=== PATIENT | male | born 1980 | race Caucasian/White ===

== ENCOUNTER 2019-01-11 16:31 | Observation (INO) | payer BC ==
[2019-01-11] MEDS ORDERED: SODIUM CHLORIDE 0.9% 1,000 ML IV STA ×2 (17:22)
[2019-01-11] MEDS ORDERED: ASPIRIN 81 MG PO STA (17:22)
[2019-01-11 17:30] LABS: Basophils # (A) 0.1 k/uL (0-0.2); Basophils % (A) 1 %; Eosinophils # (A) 0.3 k/uL (0-0.7); Eosinophils % (A) 3 %; HCT 49.4 % (39.0-53.0); Lymphocytes # (A) 2.9 k/uL (1.0-4.8); Lymphocytes % (A) 26 %; MCH 30.5 pg (25.0-35.0); MCHC 34.5 g/dL (31.0-37.0); MCV 88.5 fL (80.0-100.0); Mean Platelet Volume 7.3; Monocytes # (A) 0.5 k/uL (0-1.0); Monocytes % (A) 4 %; Neutrophils # (A) 7.4 k/uL (1.3-7.7); Neutrophils % (A) 66 %; Platelet Count 190 k/uL (150-450); RBC 5.58 m/uL (4.30-5.90); RDW 13.6 % (11.5-15.5); WBC 11.3 k/uL (3.8-10.6)
[2019-01-11 17:38] LABS: INR 0.9 (<1.2); Partial Thromboplastin Time 22.8 sec (22.0-30.0)
[2019-01-11 17:41] LABS: Albumin 4.9 g/dL (3.5-5.0); Calcium 9.6 mg/dL (8.4-10.2); Magnesium 1.8 mg/dL (1.6-2.3); Potassium 4.3 mmol/L (3.5-5.1); Total Bilirubin 0.6 mg/dL (0.2-1.3)
[2019-01-11 17:45] LABS: Creatine Kinase 88 U/L (55-170)
[2019-01-11 17:58] LABS: Creatine Kinase MB 0.4 ng/mL (0.0-2.4); Troponin I <0.012 ng/mL (0.000-0.034)
[2019-01-11] MEDS ORDERED: LORazepam 2 MG/ML INJ IV STA (18:12)
--- NOTE | 2019-01-11 18:17 | XR ---
EXAMINATION TYPE: XR chest 2V DATE OF EXAM: 01/11/2019 COMPARISON: NONE HISTORY: Hypertension TECHNIQUE: Frontal and lateral views of the chest are obtained. FINDINGS: Heart and mediastinum are normal. Lungs are clear. Diaphragm is normal. Bony thorax appear s normal. There are chest leads. IMPRESSION: Normal chest
--- NOTE | 2019-01-11 18:33 | ED ---
Chest Pain HPI - General Chief Complaint: Chest Pain Stated Complaint: high blood pressure Time Seen by Provider: 01/11/19 17:08 Source: patient, RN notes reviewed, old records reviewed Mode of arrival: ambulatory Limitations: no limitations - History of Present Illness Initial Comments: Patient is a 38-year-old male presents emergency room today with complaints of intermittent chest pain. He reports that he's had chest pain intermittently for the past 2 months. Patient states that he was having a today and felt very anxious. He went to his nurse while at school. She took his blood pressure was elevated 150/100. Patient is a school counselor. Patient states that he has a significant family history of heart disease and then dying from. He just 51 years old from heart attack. Patient states that he is a nonsmoker. He is noticed no history of hypertension. He is not diabetic. Patient states that he has a 1 out of 10 left-sided dull chest pain. - Related Data Home Medications Medication Instructions Recorded Confirmed Allopurinol [Zyloprim] 300 mg PO W/SUPPER 01/11/19 01/11/19 Mirtazapine [Remeron] 15 mg PO HS 01/11/19 01/11/19 Zolpidem Tartrate [Ambien] 10 mg PO HS 01/11/19 01/11/19 Allergies Allergy/AdvReac Type Severity Reaction Status Date / Time Penicillins Allergy Diarrhea Verified 01/11/19 18:43 Review of Systems ROS Statement: Those systems with pertinent positive or pertinent negative responses have been documented in the HPI. ROS Other: All systems not noted in ROS Statement are negative. EKG Findings - EKG Comments: EKG Findings:: EKG performed at 1705 shows sinus rhythm with inferior infarct age undetermined. Abnormal EKG noted. Patient has ventricular rate 95 bpm. Intervals 132 ms. QRS duration is 92 ms. QT QTc is 356/457 ms. Evidence of some T-wave inversions in lead 2, 3 and aVF Past Medical History Additional Past Medical History / Comment(s): gout History of Any Multi-Drug Resistant Organisms: None Reported Past Surgical History: Orthopedic Surgery Additional Past Surgical History / Comment(s): L knee Past Psychological History: Depression Smoking Status: Never smoker Past Alcohol Use History: Occasional Past Drug Use History: None Reported General Exam - General Exam Comments Initial Comments: Is an 38-year-old male. Alert and oriented 3. No significant distress. General: Well appearing, well nourished, in no distress. Oriented x 3, normal mood and affect . Ambulating without difficulty. Skin: Good turgor, no rash, unusual bruising or prominent lesions Hair: Normal texture and distribution. HEENT: Head: Normocephalic, atraumatic, no visible or palpable masses, depressions, or scaring. Eyes: Visual acuity intact, conjunctiva clear, sclera non-icteric, EOM intact, PERRL. Ears: EACs clear, TMs translucent & cone of light visualized. hearing intact. Nose: No external lesions, mucosa non-inflamed, septum and turbinates normal Mouth: Mucous membranes moist, no mucosal lesions. Teeth/Gums: No obvious caries or periodontal disease. No gingival inflammation or significant resorption. Pharynx: Mucosa non-inflamed, no tonsillar hypertrophy or exudate Neck: Supple, without lesions, bruits, or adenopathy, thyroid non-enlarged and non-tender Heart: No cardiomegaly or thrills; regular rate and rhythm, no murmur or gallop Lungs: Clear to auscultation and percussion Extremities: No amputations or deformities, cyanosis, edema or varicosities, peripheral pulses intact Musculoskeletal: Normal gait and station. No misalignment, asymmetry, crepitation, defects, tenderness, masses, effusions, decreased range of motion, instability, atrophy or abnormal strength or tone in the head, neck, spine, ribs , pelvis or extremities. Neurologic: CN 2-12 normal. Sensation to pain, touch, and proprioception normal. DTRs normal in upper and lower extremities. No pathologic reflexes. Psychiatric: Oriented X3, intact recent and remote memory, judgment and insight , normal mood and affect. Limitations: no limitations Course Vital Signs 01/11/19 01/11/19 16:34 17:11 Temperature 97.7 F Pulse Rate 99 84 Respiratory 18 18 Rate Blood Pressure 159/107 166/104 O2 Sat by Pulse 97 98 Oximetry [facility] Patient is a 38-year-old male with presents emergency department today and she went high blood pressure and chest pain. Patient ports is intermittent chest pain for the past few months. Patient today has some slight EKG changes T wave changes over lead to 3 aVF. He has a significant family history of early from cardiac disease. Patient also appears somewhat anxious. He was given IV fluids and lab work obtained. Troponin is negative chest x-ray is normal. Blood pressure came down 120/77. I discussed with family history and continued complaints of chest pain and EKG changes like to admit the Patient for further evaluation and cardiology consult. Patient agrees to treatment plan will comply. Disposition Clinical Impression: Chest pain Disposition: ADMITTED IP TO THIS [facility] Condition: Good Instructions (If sedation given, give patient instructions): Chest Pain (ED) Is patient prescribed a controlled substance at d/c from ED?: No Referrals: David Francis III, MD [Primary Care Provider] - 1-2 days Time of Disposition: 19:40
[2019-01-11] MEDS ORDERED: ACETAMINOPHEN TAB 325 MG TAB PO PRN (19:41)
[2019-01-11] MEDS ORDERED: IBUPROFEN 400 MG TAB PO PRN (19:41)
[2019-01-11] MEDS ORDERED: KETOROLAC 30 MG/ML 1 ML VIAL IVP PRN (19:41)
[2019-01-11] MEDS ORDERED: MORPHINE SULFATE 4 MG/ML SYRINGE IV PRN (19:41)
[2019-01-11] MEDS ORDERED: ONDANSETRON 4 MG/2 ML VIAL IVP PRN (19:41)
[2019-01-11] MEDS ORDERED: NALOXONE 0.4 MG/ML 1 ML VIAL IV PRN (19:41)
[2019-01-11] MEDS ORDERED: SODIUM CHLORIDE 0.9% 1,000 ML IV SCH (19:45)
[2019-01-11] MEDS ORDERED: ZOLPIDEM 10 MG TAB PO SCH (21:00)
[2019-01-11] MEDS ORDERED: MIRTAZAPINE 15 MG TAB PO SCH (21:00)
[2019-01-11] MEDS ORDERED: ALPRAZolam 0.25 MG TAB PO PRN (22:28)
[2019-01-11] MEDS ORDERED: HYDROcodone/APAP 5-325MG 1 EACH TAB PO PRN (22:28)
[2019-01-11] MEDS ORDERED: cloNIDine HCL 0.1 MG TAB PO PRN (22:28)
[2019-01-11] MEDS ORDERED: TEMAZEPAM 15 MG CAP PO PRN (22:28)
[2019-01-11] MEDS ORDERED: cloNIDine HCL 0.1 MG TAB PO SCH (22:30)
[2019-01-12 06:08] LABS: Basophils # (A) 0.1 k/uL (0-0.2); Basophils % (A) 1 %; Eosinophils # (A) 0.3 k/uL (0-0.7); Eosinophils % (A) 4 %; HCT 46.2 % (39.0-53.0); HGB 15.2 gm/dL (13.0-17.5); Lymphocytes # (A) 2.2 k/uL (1.0-4.8); Lymphocytes % (A) 26 %; MCH 29.7 pg (25.0-35.0); MCHC 32.9 g/dL (31.0-37.0); MCV 90.3 fL (80.0-100.0); Mean Platelet Volume 7.4; Monocytes # (A) 0.4 k/uL (0-1.0); Monocytes % (A) 5 %; Neutrophils # (A) 5.3 k/uL (1.3-7.7); Neutrophils % (A) 63 %; Platelet Count 149 k/uL (150-450); RBC 5.11 m/uL (4.30-5.90); RDW 13.5 % (11.5-15.5); WBC 8.4 k/uL (3.8-10.6)
[2019-01-12 06:19] LABS: Anion Gap 6 mmol/L; Blood Urea Nitrogen 12 mg/dL (9-20); Calcium 8.9 mg/dL (8.4-10.2); Carbon Dioxide 25 mmol/L (22-30); Chloride 111 mmol/L (98-107); Glucose 101 mg/dL (74-99); Potassium 4.4 mmol/L (3.5-5.1); Sodium 142 mmol/L (137-145)
--- NOTE | 2019-01-12 07:27 | HP ---
HISTORY AND PHYSICAL DATE OF SERVICE: 01/11/2019 CHIEF COMPLAINTS: Chest pain and hypertension. HISTORY OF PRESENT ILLNESS: This 38-year-old gentleman with a past medical history of multiple medical problems including history of gout, insomnia, history of kidney insufficiency in the past , history depression being followed by Dr. Francis in the outpatient setting was complaining of chest pain intermittently on the left side. The pain was actually present for 2 months which is aggravating today. The patient became very anxious. Blood pressure elevated at and the patient was admitted for further evaluation and treatment. Initial EKG did not show any acute changes. The pain was reported as rather sharp in character. There is no history of any fever, rigors. No history of headache, loss of consciousness, or seizures. PAST MEDICAL HISTORY: History of gout, insomnia, kidney failure, history of depression. MEDICATIONS: Medications prior to admission include home medications are: 1. Ambien 10 mg q.h.s. 2. Remeron 15 mg q.h.s. 3. Zyloprim 300 mg at supper. ALLERGIES: PENICILLIN. FAMILY HISTORY: History of myocardial infarction. Multiple members of family at early age , father at 54 and grandparents in 50s probably. SOCIAL HISTORY: No history of smoking. History of alcohol twice a week up to 5-6 drinks per sitting according to him. REVIEW OF SYSTEMS: ENT: No diminished hearing or diminished vision. CARDIOVASCULAR SYSTEM: As mentioned earlier. RESPIRATORY SYSTEM: As mentioned earlier. GI: No nausea. : No dysuria. NERVOUS SYSTEM: No numbness or weakness. ALLERGY/IMMUNOLOGY: No history of asthma. MUSCULOSKELETAL: As mentioned earlier. HEMATOLOGY/ONCOLOGY: No history of anemia. ENDOCRINE: No history of diabetes or hypothyroidism. CONSTITUTIONAL: As mentioned earlier. DERMATOLOGY: Negative. RHEUMATOLOGY: Negative. PSYCHIATRY: As mentioned earlier. PHYSICAL EXAMINATION: The patient is alert and oriented x3. Pulse is 90, blood pressure 173/93, respirations 16, temperature 98.2, pulse ox 97% on room air. HEENT: Conjunctivae normal. NECK: No jugular venous distention. CARDIOVASCULAR: S1, S2 muffled. RESPIRATORY: Breath sounds diminished at the bases. No rhonchi, no crackles. ABDOMEN: Soft, nontender. No mass palpable. LEGS: No edema. No swelling. NERVOUS SYSTEM: Higher function as mentioned. Moves all 4 limbs. No focal deficits. LYMPHATICS: No lymphadenopathy of the neck, axillae or groin. SKIN: No ulcer, rash or bleeding. JOINTS: No active deforming arthropathy. LABS: WBC 11.3, hemoglobin 17. Otherwise, creatinine is 1.3. ASSESSMENT: 1. Chest pain possible unstable angina possibly musculoskeletal. 2. Increased creatinine with possible chronic kidney disease stage 2. 3. Increased WBC. 4. History of gout. 5. History of insomnia. 6. History of degenerative joint disease. 7. History of depression. RECOMMENDATIONS AND DISCUSSION: In this 38-year-old gentleman who presented with multiple medical issues, at this time will monitor the patient closely. Continue the current medications, continue symptomatic treatment. Rule out myocardial infarction. Cardiology consultation , possible stress test. I would also recommend blood pressure evaluation treatment. Also, clonidine will be initiated. Other than that, I would also recommend repeat labs. Guarded prognosis because of multiple complex medical issues. Further recommendations to follow. A copy of dictation forwarded to Dr. Francis who is the primary physician. PEDRO LUIS / JAISONN: [id number] / MAXINE
--- NOTE | 2019-01-12 08:44 | P.CRDCN ---
History of Present Illness History of present illness: This is a pleasant 38-year-old male past medical history significant for gout, insomnia and depression. He denies history of hypertension, dyslipidemia, coronary artery disease or diabetes mellitus. He states his father suffered a massive myocardial infarction at the age of 54 causing his . We have been asked to see him in consultation for symptoms of chest discomfort and elevated blood pressure. He states all day yesterday he was feeling jittery and anxious. 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 It was elevated at 150/100. He has never been diagnosed with hypertension in the past. He also describes an achy sensation in the left precordial region intermittently. There is no radiation to the arm, back, neck or jaw. He also denies any shortness of breath, dizziness, palpitations, nausea, vomiting or diaphoresis. His symptoms have subsided since arriving at the hospital. He was given a dose of Ativan last evening. He is seen and examined resting comfortably lying flat in bed in no acute distress. EKG reveals sinus mechanism with inferior Q waves and T-wave inversions are noted in the inferior leads. No old for comparison. Chest x-ray is negative for an acute cardiopulmonary process. Laboratory data reviewed, cardiac enzymes negative 3. At the time of my exam: CONSTITUTIONAL: Denies fever. Denies chills. EYES: Denies blurred vision. Denies vision changes. Denies eye pain. EARS, NOSE, MOUTH & THROAT: Denies headache. Denies sore throat. Denies ear pain. CARDIOVASCULAR: Denies chest pain. Denies shortness of breath. Denies orthopnea. Denies PND. Denies palpitations. RESPIRATORY: Denies cough. GASTROINTESTINAL: Denies abdominal pain. Denies diarrhea. Denies constipation. Denies nausea. Denies vomiting. MUSCULOSKELETAL: Denies myalgias. INTEGUMENTARY: Denies pruitis. Denies rash. NEUROLOGIC: Denies numbness. Denies tingling. Denies weakness. PSYCHIATRIC: Denies anxiety. Denies depression. ENDOCRINE: Denies fatigue. Denies weight change. Denies polydipsia. Denies polyurina. GENITOURINARY: Denies burning, hematuria or urgency with micturation. HEMATOLOGIC: Denies history of anemia. Denies bleeding. Blood pressure 137/72 heart rate 68 afebrile maintaining oxygen saturation on room air GENERAL: This is a 38-year-old male in no apparent distress at the time of my examination. HEENT: Head is atraumatic, normocephalic. Pupils are equal, round. Sclerae anicteric. Conjunctivae are clear. Mucous membranes of the mouth are moist. Neck is supple. There is no jugular venous distention. No carotid bruit is heard. LUNGS: Clear to auscultation no wheezes, rales or rhonchi. No chest wall tenderness is noted on palpation or with deep breathing. HEART: Regular rate and rhythm without murmurs, rubs or gallops. S1 and S2 heard. ABDOMEN: Soft, nontender. Bowel sounds are heard. No organomegaly noted. EXTREMITIES: No evidence of peripheral edema and no calf tenderness noted. VASCULAR: Radial and dorsalis pedis pulses palpated, no evidence of clubbing. NEUROLOGIC: Patient is awake, alert and oriented x3. ASSESSMENT Chest pain, atypical for angina. An acute event has been ruled out. New-onset hypertension Significant family history of premature coronary artery disease. PLAN An acute coronary event has been ruled out. Baseline EKG abnormalities with no old for comparison. Obtain 2-D echocardiogram and Doppler study to assess cardiac structure and function. Perform stress echocardiogram to assess her stress induced cardiac ischemia. Check lipid profile. Further recommendations to follow based upon clinical course and diagnostic tests findings. Thank you kindly for this consultation. Nurse Practitioner note has been reviewed, I agree with a documented findings and plan of care. Patient was seen and examined. Past Medical History Additional Past Medical History / Comment(s): gout, insomnia, kidney insufficency in the past History of Any Multi-Drug Resistant Organisms: None Reported Past Surgical History: Orthopedic Surgery Additional Past Surgical History / Comment(s): L knee 1992 Past Anesthesia/Blood Transfusion Reactions: No Reported Reaction Past Psychological History: Depression Smoking Status: Never smoker Past Alcohol Use History: Occasional Past Drug Use History: None Reported - Past Family History Father Family Medical History: Myocardial Infarction (OR) Additional Family Medical History / Comment(s): in his 50's Mother Additional Family Medical History / Comment(s): mom's dad of OR in 50's Medications and Allergies Home Medications Medication Instructions Recorded Confirmed Type Allopurinol [Zyloprim] 300 mg PO W/SUPPER 01/11/19 01/11/19 History Mirtazapine [Remeron] 15 mg PO HS 01/11/19 01/11/19 History Zolpidem Tartrate [Ambien] 10 mg PO HS 01/11/19 01/11/19 History Allergies Allergy/AdvReac Type Severity Reaction Status Date / Time Penicillins Allergy Diarrhea Verified 01/11/19 18:43 Physical Exam Vitals: Vital Signs Temp Pulse Pulse Resp BP BP Pulse Ox 01/12/19 04:00 16 01/12/19 03:25 97.8 F 68 16 137/72 96 01/11/19 23:38 16 01/11/19 23:30 97.3 F L 79 16 106/66 92 L 01/11/19 20:30 16 01/11/19 20:21 98.2 F 90 16 173/93 97 01/11/19 20:05 97.2 F L 87 16 125/90 95 01/11/19 17:11 84 18 166/104 98 01/11/19 16:34 97.7 F 99 18 159/107 97 Intake and Output 01/11/19 01/12/19 01/12/19 22:59 06:59 14:59 Other: Voiding Method Toilet Toilet # Voids 2 Weight 111.13 kg Results 01/12/19 05:52 01/12/19 05:52 Cardiac Enzymes 01/11/19 01/11/19 01/11/19 Range/Units 17:17 17:17 23:22 AST 36 (17-59) U/L CK-MB (CK-2) 0.4 (0.0-2.4) ng/mL Troponin I <0.012 <0.012 (0.000-0.034) ng/mL 01/12/19 Range/Units 05:52 AST (17-59) U/L CK-MB (CK-2) (0.0-2.4) ng/mL Troponin I <0.012 (0.000-0.034) ng/mL Coagulation 01/11/19 Range/Units 17:17 PT 10.0 (9.0-12.0) sec APTT 22.8 (22.0-30.0) sec CBC 01/11/19 01/12/19 Range/Units 17:17 05:52 WBC 11.3 H 8.4 (3.8-10.6) k/uL RBC 5.58 5.11 (4.30-5.90) m/uL Hgb 17.0 15.2 (13.0-17.5) gm/dL Hct 49.4 46.2 (39.0-53.0) % Plt Count 190 149 L (150-450) k/uL Comprehensive Metabolic Panel 01/11/19 01/12/19 Range/Units 17:17 05:52 Sodium 140 142 (137-145) mmol/L Potassium 4.3 4.4 (3.5-5.1) mmol/L Chloride 105 111 H (98-107) mmol/L Carbon Dioxide 28 25 (22-30) mmol/L BUN 14 12 (9-20) mg/dL Creatinine 1.30 H 1.13 (0.66-1.25) mg/dL Glucose 105 H 101 H (74-99) mg/dL Calcium 9.6 8.9 (8.4-10.2) mg/dL AST 36 (17-59) U/L ALT 36 (21-72) U/L Alkaline Phosphatase 86 (38-126) U/L Total Protein 8.0 (6.3-8.2) g/dL Albumin 4.9 (3.5-5.0) g/dL Current Medications Generic Name Dose Route Start Last Admin Trade Name Freq PRN Reason Stop Dose Admin Acetaminophen 650 mg 01/11/19 19:41 Tylenol Tab PO Q6HR PRN Mild Pain or Fever > 100.5 Hydrocodone Bitart/Acetaminophen 1 each 01/11/19 22:28 Ambrose 5-325 PO Q6HR PRN Pain Allopurinol 300 mg 01/12/19 17:30 Zyloprim PO W/SUPPER MADHU Alprazolam 0.25 mg 01/11/19 22:28 Xanax PO TID PRN Anxiety Clonidine 0.1 mg 01/11/19 22:28 Catapres PO Q4HR PRN Hypertension Clonidine 0.1 mg 01/11/19 22:30 01/11/19 23:28 Catapres PO Not Given TID MADHU Heparin Sodium (Porcine) 5,000 unit 01/12/19 09:00 Heparin SQ Q12HR MADHU Sodium Chloride 1,000 mls @ 20 mls/hr 01/11/19 19:45 Saline 0.9% IV .Q24H MADHU Ibuprofen 400 mg 01/11/19 19:41 Motrin PO Q6HR PRN Mild Pain or Fever > 100.5 Ketorolac Tromethamine 30 mg 01/11/19 19:41 Toradol IVP 01/16/19 19:42 Q6HR PRN Moderate Pain Mirtazapine 15 mg 01/11/19 21:00 01/11/19 22:04 Remeron PO 15 mg HS MADHU Administration Morphine Sulfate 4 mg 01/11/19 19:41 Morphine Sulfate (Inj) IV Q4HR PRN Severe Pain Naloxone HCl 0.2 mg 01/11/19 19:41 Narcan IV Q2M PRN Opioid Reversal Ondansetron HCl 4 mg 01/11/19 19:41 Zofran IVP Q8HR PRN Nausea And Vomiting Pantoprazole Sodium 40 mg 01/12/19 09:00 Protonix IV DAILY MADHU Temazepam 15 mg 01/11/19 22:28 Restoril PO HS PRN Insomnia Zolpidem Tartrate 10 mg 01/11/19 21:00 01/11/19 22:04 Ambien PO 10 mg HS MADHU Administration Intake and Output 01/11/19 01/12/19 01/12/19 22:59 06:59 14:59 Other: Voiding Method Toilet Toilet # Voids 2 Weight 111.13 kg 01/12/19 05:52 01/12/19 05:52
[2019-01-12] MEDS ORDERED: HEPARIN SODIUM,PORCINE 5,000 UNIT/ML 1 ML VIAL SQ SCH (09:00)
[2019-01-12] MEDS ORDERED: PANTOPRAZOLE 40 MG/10 ML VIAL IV SCH (09:00)
[2019-01-12 11:09] LABS: Cholesterol 148 mg/dL (<200); HDL Cholesterol 33 mg/dL (40-60); LDL Cholesterol,Calculated 88 mg/dL (0-99); Triglycerides 137 mg/dL (<150)
[2019-01-12 12:04] VITALS: BP 145/95; PULSE 113; RESP 18; TEMP 98.4
--- NOTE | 2019-01-12 13:30 | ECHOF ---
Referral Reason:cp, htn, family hx MEASUREMENTS -------- HEIGHT: 188.0 cm WEIGHT: 111.1 kg BP: 115/77 RVIDd: 3.3 cm (< 3.3) IVSd: 1.3 cm (0.6 - 1.1) LVIDd: 4.6 cm (3.9 - 5.3) LVPWd: 1.3 cm (0.6 - 1.1) IVSs: 1.5 cm LVIDs: 3.9 cm LVPWs: 1.5 cm LAESV Index (A-L): 15.07 ml/m Ao Diam: 2.9 cm (2.0 - 3.7) AV Cusp: 2.0 cm (1.5 - 2.6) LA Diam: 2.6 cm (2.7 - 3.8) EPSS: 1.2 cm MV E Sarwat: 0.87 m/s MV DecT: 256 ms MV A Sarwat: 0.65 m/s MV E/A Ratio: 1.33 RAP: 5.00 mmHg RVSP: 10.07 mmHg MV EF SLOPE: 125.88 mm/s (70 - 150) MV EXCURSION: 1.35 cm (> 18.000) FINDINGS -------- Sinus rhythm. This was a technically adequate study. The left ventricular size is normal. There is mild concentric left ventricular hypertrophy. Overa ll left ventricular systolic function is mildly impaired with, an EF between 45 - 50 %. The right ventricle is mildly enlarged. Normal LA size by volume 22+/-6 ml/m2. The right atrium is normal in size. Aortic valve is trileaflet and is mildly thickened. There is no evidence of aortic regurgitation. There is no evidence of aortic stenosis. The mitral valve leaflets are mildly thickened. There is trace to mild mitral regurgitation. Trace tricuspid regurgitation present. Right ventricular systolic pressure is normal at < 35 mmHg. There is no evidence of pulmonary hypertension. Trace/mild (physiologic) pulmonic regurgitation. The aortic root size is normal. Normal inferior vena cava with normal inspiratory collapse consistent with estimated right atrial pre ssure of 5 mmHg. There is no pericardial effusion. CONCLUSIONS -------- 1. Sinus rhythm. 2. This was a technically adequate study. 3. The left ventricular size is normal. 4. There is mild concentric left ventricular hypertrophy. 5. Overall left ventricular systolic function is mildly impaired with, an EF between 45 - 50 %. 6. The right ventricle is mildly enlarged. 7. Normal LA size by volume 22+/-6 ml/m2. 8. Aortic valve is trileaflet and is mildly thickened. 9. The mitral valve leaflets are mildly thickened. 10. There is trace to mild mitral regurgitation. 11. Trace tricuspid regurgitation present. 12. Right ventricular systolic pressure is normal at < 35 mmHg. 13. There is no evidence of pulmonary hypertension. 14. Trace/mild (physiologic) pulmonic regurgitation. 15. The aortic root size is normal. 16. There is no pericardial effusion. EXTRUDER TENDER: Clinton Younger RDCS
--- NOTE | 2019-01-12 14:18 | ECHOS ---
STRESS ECHOCARDIOGRAM INDICATIONS: Chest pain. MEDICATIONS: Ambien, Allopurinol, Remeron. BASELINE HEART RATE: 86 BASELINE BLOOD PRESSURE: 103/60 MAXIMUM HEART RATE: 172 MAXIMUM BLOOD PRESSURE: 175/85 85% MPHR: 156 100% MPHR: 183 METS: 11.7 MAXIMUM STAGE REACHED: III TOTAL EXERCISE TIME: 10:14 CLINICAL INFORMATION: STRESS DATA: Pretesting physical examination showed a heart rate of 86, pressure is 103/60 mmHg. Baseline EKG showed sinus mechanism. The patient exercised on the treadmill according to Brady protocol for a total of 10 minutes and 14 seconds and achieved 11.7 METS with max heart rate was 172, which is about 93% of maximum predicted heart rate. Maximum blood pressure was 175/85 mmHg. Clinically, he did not have any symptoms of chest pain or discomfort and the EKG did not show any significant ST or T- wave abnormalities concerning for ischemia. ECHOCARDIOGRAM IMAGES: On echocardiogram images from parasternal long axis view, parasternal short axis view, apical 4 chamber and apical 2 chamber view were obtained as baseline images, at the peak of the heart rate as well as on recovery. The echocardiogram images showed good augmentation in the left ventricular systolic function without any evidence of wall motion abnormalities concerning for ischemia. CONCLUSION: 1. Excellent exercise tolerance. 2. Normal EKG in response to exercise. 3. Normal echocardiogram in response to exercise. 4. Essentially normal stress test for the patient. MMODL / IJN: [id number] /
[2019-01-12] MEDS ORDERED: METOPROLOL TARTRATE 12.5 MG TAB PO SCH (14:33)
[2019-01-12] MEDS ORDERED: LISINOPRIL 5 MG TAB PO SCH (14:45)
--- NOTE | 2019-01-12 15:15 | DS ---
DISCHARGE SUMMARY FINAL DIAGNOSES: 1. Chest pain, possible musculoskeletal. 2. Myocardial infarction ruled out, negative stress echo. 3. Congestive heart failure with chronic systolic dysfunction, ejection fraction 45%- 50%. 4. Increased creatinine with possible chronic kidney disease stage II. 5. Increased WBC. 6. History of gout. 7. History of insomnia. 8. History of degenerative joint disease. 9. History of depression. DISCHARGE DISPOSITION: The patient will be discharged in a stable condition with guarded prognosis. HISTORY OF PRESENT ILLNESS: This is a 38-year-old gentleman with a past medical history of multiple medical problems, admitted with chest pain. Myocardial infarction ruled out. Cardiology performed a stress test which was negative. A 2D echo as above. Cardiology saw the patient. Recommend beta blockers, DENIZ inhibitors. Recommend to stop the alcohol as well. On exam, vitals are stable. CARDIOVASCULAR: S1, S2. ABDOMEN: Soft. NERVOUS SYSTEM: No focal deficits. DISCHARGE DIET: Cardiac diet. Activity limited until followup. FOLLOWUP: Follow up with Dr. Francis in 2-3 days; follow up with Dr. Walker and Dr. Vyas as recommended. MEDICATIONS ARE: 1. Zyloprim 300 mg at supper. 2. Remeron 50 mg q.h.s. 3. Ambien 10 mg q.h.s. 4. Tylenol p.r.n. 5. Zestril 5 mg p.o. daily. 6. Lopressor 12.5 mg p.o. b.i.d. Once again, the patient will be discharged in a stable condition with guarded prognosis. MMODL / IJN: [id number] /
[2019-01-12] MEDS ORDERED: ALLOPURINOL 300 MG TAB PO SCH (17:30)
== END 2019-01-12 15:48 | disposition home or self-care (01) ==
LOC: EC 16:31 → 1SOBS 19:32
PROVIDERS: ADMIT Hospitalist; ATTEND Hospitalist
DX: R07.89 Other chest pain (principal); R94.31 Abnormal electrocardiogram [ECG] [EKG]; I11.0 Hypertensive heart disease with heart failure; I50.22 Chronic systolic (congestive) heart failure; R79.89 Other specified abnormal findings of blood chemistry; D72.829 Elevated white blood cell count, unspecified; M10.9 Gout, unspecified; G47.00 Insomnia, unspecified; M19.90 Unspecified osteoarthritis, unspecified site; F32.9 Major depressive disorder, single episode, unspecified; Z79.899 Other long term (current) drug therapy; Z82.49 Family history of ischemic heart disease and other diseases of the circulatory system; Z88.0 Allergy status to penicillin
CPT/HCPCS: 96361; 96374; 99285; 36415; 93005; 93306; 93351; 83880; 80061; 80053; 80048; 82150; 82550; 82553; 83690; 83735; 84484 ×2; 85025 ×2; 85610; 85730; 71046; G0378 ×2; J2060